=== PATIENT | female | born 1945 | race Caucasian/White ===

== ENCOUNTER 2017-04-19 21:57 | Inpatient (IN) | payer BC, OTHER ==
[~2017-04-19] VITALS: Ht 165.1 cm; Wt 96.1 kg
[~2017-04-19 21:57] MED LIST: AMARYL4 MG PO; ASPIR 8181 M1 PO; CRESTOR10 MG PO; GLUCOPHAGE1000 MG PO; LISINOPRIL40 MG PO
[2017-04-20 08:42] VITALS: BP 118/78
[2017-04-20 08:49] LABS: POINT-OF-CARE METER ID UU14174212
[2017-04-20 13:34] LABS: POINT-OF-CARE METER ID UU13113675
[2017-04-20 17:06] LABS: POINT-OF-CARE METER ID UU13113675
[2017-04-20 18:02] VITALS: BP 136/64
[2017-04-20 20:06] VITALS: BP 115/58
[2017-04-20 23:38] VITALS: BP 139/63
[2017-04-21 00:25] VITALS: BP 128/78
[2017-04-21 03:49] VITALS: BP 143/65
[2017-04-21 08:30] VITALS: BP 116/55
[2017-04-21 12:16] VITALS: BP 109/50
[2017-04-21 13:09] LABS: POINT-OF-CARE METER ID UU14208753
[2017-04-21 16:21] LABS: POINT-OF-CARE METER ID UU14208753
[2017-04-21 19:59] VITALS: BP 113/57
[2017-04-21 23:30] VITALS: BP 105/52
[2017-04-22 04:59] VITALS: BP 112/73
[2017-04-22 09:37] VITALS: BP 134/74
[2017-04-22] MEDS ORDERED: NORCO 7.5/321 TABLET PO ×2 (15:48→16:01)
[2017-04-22] MEDS ORDERED: ZANAFLEX4 MG PO (15:51)
[2017-04-22 17:26] LABS: POINT-OF-CARE METER ID UU14117124
== END 2017-04-22 17:25 | disposition home or self-care (01) | DRG 460 ==
LOC: ENRESERV 21:57 → 2SOUTH 04-20 07:48 → 3EAST 04-20 07:48 → 2SOUTH 04-20 11:05 → ENRESERV 04-20 17:04 → 3EAST 04-20 17:46
PROVIDERS: Neurological Surgery
PROC: 0SG00A0 Fusion of Lumbar Vertebral Joint with Interbody Fusion Device, Anterior Approach, Anterior Column, Open Approach (ICD-10-PCS; principal; 2017-04-20)
DX: M43.16 Spondylolisthesis, lumbar region (principal); M99.03 Segmental and somatic dysfunction of lumbar region; M47.26 Other spondylosis with radiculopathy, lumbar region; E11.9 Type 2 diabetes mellitus without complications; I10 Essential (primary) hypertension; E66.9 Obesity, unspecified; G89.29 Other chronic pain; Z68.36 Body mass index [BMI] 36.0-36.9, adult; M48.061 Spinal stenosis, lumbar region without neurogenic claudication; Z23 Encounter for immunization
CPT/HCPCS: 72100; 76000; 82948; 86850; 86900; 86901; 90686; 94799; J0330; J0690; J1100; J1170; J1815; J2250; J2405; J2710; J2930; J3010; J3480; S0020